=== PATIENT | female | born 1995 | race African-American/Black ===

== ENCOUNTER 2017-04-21 08:04 | Emergency (ER) | payer OTHER ==
[~2017-04-21] VITALS: Ht 162.6 cm; Wt 50.0 kg
[2017-04-21] MEDS ORDERED: SERT25TA PO (08:09)
[2017-04-21] MEDS ORDERED: KETOROLAC 60MG/2ML VIAL IM ONE (10:30)
[2017-04-21] MEDS ORDERED: CYCLOBENZAPRINE 10MG TABLET PO SCH ×2 (11:19→14:00)
[2017-04-21 13:18] VITALS: BP 98/72
== END 2017-04-21 13:28 | disposition home or self-care (01) ==
LOC: ER 08:26
DX: S70.02XA Contusion of left hip, initial encounter (principal); F41.9 Anxiety disorder, unspecified; V43.52XA Car driver injured in collision with other type car in traffic accident, initial encounter; Y93.89 Activity, other specified; Y92.488 Other paved roadways as the place of occurrence of the external cause
CPT/HCPCS: 73502; 81025; 96372; 99284; J1885; Z7610